=== PATIENT | female | born 1960 | race Caucasian/White ===

== ENCOUNTER 2016-08-13 18:05 | Emergency (ER) | payer MEDICAID, OTHER ==
[~2016-08-13] VITALS: Ht 157.5 cm; Wt 87.2 kg
[~2016-08-13 18:05] MED LIST: HYDR25TA PO; LEVO25TA9 PO; PRAV20TA4 PO; [UNRECOGNIZED DRUG - CODE]
[2016-08-13] MEDS ORDERED: ATEN25 PO (18:09)
[2016-08-13 18:23] LABS: GLUCOSE,POINT OF CARE 99 MG/DL (70-110)
[2016-08-13] MEDS ORDERED: HydrALAZINE HCL 20 MG/ML VIAL IVP ONE (18:30)
[2016-08-13] MEDS ORDERED: LEVO75 PO (18:39)
[2016-08-13] MEDS ORDERED: ATOR40TA28 PO (18:39)
[2016-08-13 18:55] LABS: BASOPHILS # (AUTO) 0.06 K/uL (0.00-0.20); BASOPHILS % (AUTO) 0.9 % (0.0-2.0); EOSINOPHILS # (AUTO) 0.14 K/uL (0.00-0.70); EOSINOPHILS % (AUTO) 2.39 % (1.0-6.0); HEMATOCRIT 34.1 % (36-46); HEMOGLOBIN 11.1 g/dL (12.0-16.0); LYMPHOCYTES # (AUTO) 0.9 K/uL (1.0-4.8); LYMPHOCYTES % (AUTO) 15.7 % (22.0-44.0); MEAN CORPUSCULAR HEMOGLOBIN 27.5 pg (26.0-34.0); MEAN CORPUSCULAR HGB CONC 32.6 G/dL (31.0-37.0); MEAN CORPUSCULAR VOLUME 84 fL (80-100); MONOCYTES # (AUTO) 0.6 K/uL (0.1-1.0); MONOCYTES % (AUTO) 10.6 % (2.0-9.0); NEUTROPHILS # (AUTO) 4.2 K/uL (1.8-7.7); NEUTROPHILS % (AUTO) 70.5 % (40.0-70.0); PLATELET COUNT (AUTO) 179 K/uL (150-450); RED BLOOD CELL COUNT(AUTO) 4.04 MIL/uL (4.00-5.20); RED CELL DISTRIBUTION WIDTH 15.2 % (11.5-14.5)
[2016-08-13 19:17] LABS: AMMONIA 15 umol/L (11-32); TROPONIN I < 0.02 ng/mL (0.00-0.05)
[2016-08-13 19:20] LABS: APPEARANCE,URINE CLEAR (CLEAR); GLUCOSE, URINE (UA) NEGATIVE (NEGATIVE); KETONES,URINE NEGATIVE (NEGATIVE); LEUKOCYTE ESTERASE ,URINE NEGATIVE (NEGATIVE); OCCULT BLOOD,URINE NEGATIVE (NEGATIVE); PH,URINE 6.5 (5.0-8.0); PROTEIN,URINE NEGATIVE (NEGATIVE)
[2016-08-13 19:21] LABS: SALICYLATE < 2.8 mg/dL (2.8-20.0)
[2016-08-13 19:22] LABS: B-TYPE NATRIURETIC PEPTIDE 80 pg/mL (0-100)
[2016-08-13 19:27] LABS: ADD UA MICROSCOPIC NO
[2016-08-13 19:46] LABS: ANION GAP 8 mmol/L (8-16); CALCIUM, TOTAL 9.2 mg/dL (8.8-10.5); CARBON DIOXIDE 30 mmol/L (22-29); CHLORIDE 105 mmol/L (98-107); CREATININE 0.84 mg/dL (0.60-1.30); GLOMERULAR FILTR. RATE CALC > 60 mL/min (>60); POTASSIUM 3.8 mmol/L (3.5-5.1); SODIUM SERUM 143 mmol/L (136-145); UREA NITROGEN, BLOOD 8 mg/dL (7-18)
[2016-08-13 19:52] LABS: BILIRUBIN,TOTAL 0.7 mg/dL (0.1-1.0)
[2016-08-13 19:53] LABS: ACETAMINOPHEN 7 mcg/mL (10-30); ALANINE AMINOTRANSFERASE 26 U/L (12-78); ALBUMIN 3.4 g/dL (3.4-5.0); ASPARTATE AMINOTRANSFERASE 17 U/L (15-37); CREATINE KINASE, TOTAL 71 U/L (26-192); TOTAL PROTEIN, SERUM 7.4 g/dL (6.4-8.2)
[2016-08-13] MEDS ORDERED: GuaiFENesin/CODEINE [SUGAR FREE] 200-20MG/10 ML SYRUP UDCUP PO ONE (20:45)
[2016-08-13 21:06] VITALS: BP 119/53
== END 2016-08-13 21:18 | disposition home or self-care (01) ==
LOC: EMS 18:06
DX: J40 Bronchitis, not specified as acute or chronic (principal); R07.89 Other chest pain; J45.909 Unspecified asthma, uncomplicated; E11.9 Type 2 diabetes mellitus without complications; I10 Essential (primary) hypertension; E03.9 Hypothyroidism, unspecified
CPT/HCPCS: 36415; 71010; 80053; 81003; 82140; 82550; 82962; 83690; 83880; 84484; 85025; 99285; G0480; G0481

== ENCOUNTER 2016-08-29 13:08 | Emergency (ER) | payer OTHER ==
[~2016-08-29] VITALS: Ht 154.9 cm; Wt 126.0 kg
[~2016-08-29 13:08] MED LIST changes: +ATEN25 PO; +ATOR40TA28 PO; -HYDR25TA PO; -LEVO25TA9 PO; +LEVO75 PO; -PRAV20TA4 PO; -[UNRECOGNIZED DRUG - CODE]
[2016-08-29] MEDS ORDERED: ACET-2247 PO (13:21)
[2016-08-29] MEDS ORDERED: GABA250S2 PO (13:21)
[2016-08-29] MEDS ORDERED: ENOX30DI5 SQ (13:21)
[2016-08-29] MEDS ORDERED: ONDA4 PO (13:21)
[2016-08-29] MEDS ORDERED: OXYC5SOL17 PO (13:21)
[2016-08-29] MEDS ORDERED: LORA2ORA PO (13:22)
[2016-08-29 13:32] LABS: GLUCOSE,POINT OF CARE 75 MG/DL (70-110)
[2016-08-29 14:20] LABS: BASOPHILS % (AUTO) 0.2 % (0.0-2.0); EOSINOPHILS % (AUTO) 2.2 % (1.0-6.0); HEMATOCRIT 34.1 % (36-46); HEMOGLOBIN 10.8 g/dL (12.0-16.0); LYMPHOCYTES # (AUTO) 1.2 K/uL (1.0-4.8); LYMPHOCYTES % (AUTO) 16.8 % (22.0-44.0); MEAN CORPUSCULAR HEMOGLOBIN 26.3 pg (26.0-34.0); MEAN CORPUSCULAR HGB CONC 31.7 G/dL (31.0-37.0); MEAN CORPUSCULAR VOLUME 83 fL (80-100); MONOCYTES # (AUTO) 0.5 K/uL (0.1-1.0); MONOCYTES % (AUTO) 7.5 % (2.0-9.0); NEUTROPHILS # (AUTO) 5.4 K/uL (1.8-7.7); NEUTROPHILS % (AUTO) 73.3 % (40.0-70.0); PLATELET COUNT (AUTO) 213 K/uL (150-450); RED BLOOD CELL COUNT(AUTO) 4.12 MIL/uL (4.00-5.20); RED CELL DISTRIBUTION WIDTH 15.3 % (11.5-14.5); WHITE BLOOD COUNT (AUTO) 7.3 K/uL (4.5-11.0)
[2016-08-29 14:30] LABS: ANION GAP 6 mmol/L (8-16); CALCIUM, TOTAL 8.8 mg/dL (8.8-10.5); CARBON DIOXIDE 33 mmol/L (22-29); CHLORIDE 101 mmol/L (98-107); CREATININE 0.95 mg/dL (0.60-1.30); GLOMERULAR FILTR. RATE CALC > 60 mL/min (>60); POTASSIUM 3.8 mmol/L (3.5-5.1); SODIUM SERUM 140 mmol/L (136-145); UREA NITROGEN, BLOOD 12 mg/dL (7-18)
[2016-08-29 14:33] LABS: INR 1.1 (0.9-1.1); PROTHROMBIN TIME 11.6 SEC (9.4-11.6)
[2016-08-29 14:36] LABS: ALANINE AMINOTRANSFERASE 16 U/L (12-78); ASPARTATE AMINOTRANSFERASE 11 U/L (15-37); BILIRUBIN,TOTAL 0.8 mg/dL (0.1-1.0); CREATINE KINASE, TOTAL 35 U/L (26-192); TOTAL PROTEIN, SERUM 6.8 g/dL (6.4-8.2)
[2016-08-29 14:56] LABS: GLUCOSE, URINE (UA) NEGATIVE (NEGATIVE); KETONES,URINE 15 mg/dL (NEGATIVE); LEUKOCYTE ESTERASE ,URINE NEGATIVE (NEGATIVE); PH,URINE 6.5 (5.0-8.0); PROTEIN,URINE NEGATIVE (NEGATIVE)
[2016-08-29 14:58] LABS: APPEARANCE,URINE HAZY (CLEAR)
[2016-08-29 14:59] LABS: ADD UA MICROSCOPIC YES; OCCULT BLOOD,URINE SMALL (NEGATIVE)
[2016-08-29 15:00] LABS: SQUAMOUS EPITHELIAL CELL,UR Many /LPF (None Seen); WBC,URINE 0-2 /HPF (0-5)
[2016-08-29] MEDS ORDERED: SODIUM CHLORIDE 0.9% 1,000 ML IV ONE (15:15)
[2016-08-29 21:05] VITALS: BP 140/78
== END 2016-08-29 21:09 | disposition home or self-care (01) ==
LOC: EMS 13:10
DX: T40.2X1A Poisoning by other opioids, accidental (unintentional), initial encounter (principal); Y92.9 Unspecified place or not applicable; J45.909 Unspecified asthma, uncomplicated; E11.9 Type 2 diabetes mellitus without complications; I10 Essential (primary) hypertension; E03.9 Hypothyroidism, unspecified
CPT/HCPCS: 36415; 80053; 80307; 81001; 82550; 82962; 83690; 84484; 85025; 85610; 85730; 93005; 96360; 96361; 99285; J7030

== ENCOUNTER 2022-08-04 07:08 | Day surgery (SDC) | payer OTHER ==
[~2022-08-04] VITALS: Ht 162.6 cm; Wt 118.2 kg
[~2022-08-04 07:08] MED LIST changes: -ATEN25 PO; +CLOP75TA60 PO; +HYDR25TA2 PO; +METF-1211 PO; +SEMA0.25 SQ; +SODIUM CHLORIDE 0.9% 1,000 ML ONE
[2022-08-04] MEDS ORDERED: LIDOCAINE 4% 50 ML SOLUTION TP ONE (07:09)
[2022-08-04] MEDS ORDERED: LIDOCAINE 2% 11 ML JELLY TP ONE (07:09)
[2022-08-04] MEDS ORDERED: BENZOCAINE 20% 50 MCG/SPRAY 57 GM TP ONE (07:09)
[2022-08-04 08:31] LABS: GLUCOMETER DEV NAME(LOC) SDS.; GLUCOSE,POINT OF CARE 94 MG/DL (70-110)
[2022-08-04] MEDS ORDERED: MIDAZOLAM HCL 2 MG/2 ML VIAL ONE (08:56)
[2022-08-04] MEDS ORDERED: FentaNYL CITRATE PF 100 MCG/2 ML VIAL ONE (08:56)
[2022-08-04] MEDS ORDERED: SODIUM CHLORIDE 0.9% 1,000 ML IV ONE (09:00)
[2022-08-04] MEDS ORDERED: MethylPREDNISolone SOD SUCC 125 MG/2 ML VIAL ONE (09:15)
[2022-08-04] MEDS ORDERED: MethylPREDNISolone SOD SUCC 125 MG/2 ML VIAL IVP ONE (09:30)
== END 2022-08-04 11:05 | disposition home or self-care (01) ==
LOC: SURGERY 07:08
PROVIDERS: ATTEND Internal Medicine Critical Care Medicine
DX: R05.3 Chronic cough (principal); Z79.899 Other long term (current) drug therapy; G47.30 Sleep apnea, unspecified; Z98.890 Other specified postprocedural states; Z90.49 Acquired absence of other specified parts of digestive tract; E11.9 Type 2 diabetes mellitus without complications
CPT/HCPCS: 31623; 88112; 82962; 87206; 87101; 87220; 87070; 93005; 31624; 71045; 71250; 87015; J3010; J2250; J2930; Q9967; J7030; Z7610